=== PATIENT | male | born 1995 | race American Indian/Alaskan Native ===

== ENCOUNTER 2017-08-07 00:02 | Emergency (ER) | payer OTHER ==
[2017-08-07 00:13] VITALS: BP 139/70; PULSE 64; RESP 17; TEMP 98.6; O2SAT 98
[2017-08-07] MEDS ORDERED: Sodium Chloride 0.9% 1,000 ML IV STA (00:33)
--- NOTE | 2017-08-07 00:37 | ED PDOC ---
HPI: General Adult Time Seen by Provider: 08/07/17 00:11 Chief Complaint (Nursing): Headache Chief Complaint (Provider): weakness History Per: Patient History/Exam Limitations: no limitations Onset/Duration Of Symptoms: Days (1) Current Symptoms Are (Timing): Still Present Additional History Per: Patient Additional Complaint(s): 21 y/o male history of seizures (diagnosed in ED, never followed up with neuro or started on meds) presents with generalized weakness x 1 day. Patient states "I feel dehydrated". Notes mild cough. Denies fever, headache, dizziness, extremity numbness/weakness, chest pain, shortness of breath, palpitations, abdominal pain, changes in bowel movements, urinary symptoms, drug/alcohol use. Past Medical History Reviewed: Historical Data, Nursing Documentation, Vital Signs Vital Signs: Last Vital Signs Temp 98.6 F 08/07/17 00:08 Pulse 64 08/07/17 00:08 Resp 17 08/07/17 00:08 BP 139/70 08/07/17 00:08 Pulse Ox 98 08/07/17 01:18 - Medical History PMH: Asthma, Seizures - Surgical History Surgical History: No Surg Hx - Family History Family History: States: Unknown Family Hx - Social History Current smoker - smoking cessation education provided: Yes - Immunization History Hx Tetanus Toxoid Vaccination: No Hx Influenza Vaccination: No Hx Pneumococcal Vaccination: No - Home Medications Home Medications: Ambulatory Orders Medication Instructions Recorded No Known Home Med 12/31/16 - Allergies Allergies/Adverse Reactions: Allergies Allergy/AdvReac Type Severity Reaction Status Date / Time shrimp Allergy RASH Verified 12/31/16 14:38 Review of Systems ROS Statement: Except As Marked, All Systems Reviewed And Found Negative Constitutional: Positive for: Weakness Physical Exam - Reviewed Nursing Documentation Reviewed: Yes Vital Signs Reviewed: Yes - Physical Exam Appears: Positive for: Well, Non-toxic, No Acute Distress Head Exam: Positive for: ATRAUMATIC, NORMAL INSPECTION, NORMOCEPHALIC Skin: Positive for: Normal Color Eye Exam: Positive for: Normal appearance ENT: Positive for: Normal ENT Inspection Cardiovascular/Chest: Positive for: Regular Rate, Rhythm Respiratory: Positive for: Normal Breath Sounds Gastrointestinal/Abdominal: Positive for: Normal Exam Back: Positive for: Normal Inspection Extremity: Positive for: Normal ROM Neurologic/Psych: Positive for: Alert, Oriented - Laboratory Results Result Diagrams: 08/07/17 00:40 08/07/17 00:40 - ECG ECG: Positive for: Viewed By Me (reviewed by ED attending) ECG Rhythm: Positive for: Sinus Bradycardia (57bpm) O2 Sat by Pulse Oximetry: 98 Pulse Ox Interpretation: Normal - Radiology X-Ray: Viewed By Me X-Ray Interpretation: No Acute Disease - Progress ED Course And Treament: labs, ekg, accucheck, chest xray, urine, IV fluids On re-eval, patient states he is feeling better. Patient educated on findings, discharged with instructions to follow up PMD 2-3 days. Return to ED for worsening/concerning symptoms. Disposition - Clinical Impression Clinical Impression: Generalized weakness, Polysubstance abuse - Patient ED Disposition Is Patient to be Admitted: No Counseled Patient/Family Regarding: Studies Performed, Diagnosis, Need For Followup - Disposition Referrals: [facility] [Outside] Disposition: Routine/Home Disposition Time: 02:05 Condition: IMPROVED Instructions: Weakness (ED), Polysubstance Abuse (ED)
[2017-08-07 01:13] LABS: BASO # 0.1 K/uL (0.0-0.2); BASO % 0.7 % (0.0-2.0); EOS % 0.2 % (0.0-4.0); HEMATOCRIT 42.3 % (35.0-51.0); LYMPH # 1.4 K/uL (1.0-4.3); LYMPH % 10.6 % (20.0-40.0); MEAN CELL VOLUME 97.1 fl (80.0-94.0); MEAN CORPUSCULAR HEMOGLOBIN 32.2 pg (27.0-31.0); MEAN CORPUSCULAR HGB CONC 33.2 g/dL (33.0-37.0); MEAN PLATELET VOLUME 9.7 fl (7.2-11.7); MONO % 7.3 % (0.0-10.0); NEUT # 10.8 K/uL (1.8-7.0); NEUT % 81.2 % (50.0-75.0); WHITE BLOOD COUNT 13.3 K/uL (4.8-10.8)
[2017-08-07 01:24] LABS: ALB/GLOB RATIO 1.7 (1.0-2.1); ALCOHOL SERUM < 10 mg/dl (0-10); ALKALINE PHOSPHATASE 62 U/L (38-126); ALT/SGPT 32 U/L (21-72); AST/SGOT 28 U/L (17-59); BILIRUBIN,TOTAL 0.7 mg/dl (0.2-1.3); BLOOD UREA NITROGEN 12 mg/dl (9-20); CALCIUM 9.4 mg/dL (8.4-10.2); CARBON DIOXIDE 24 mmol/L (22-30); CHLORIDE 104 mmol/L (98-107); GFR AFRICAN-AMERICAN > 60; GLUCOSE,RANDOM 101 mg/dL (75-110); POTASSIUM 3.8 MMOL/L (3.6-5.0); SODIUM 143 mmol/l (132-148); TOTAL PROTEIN 7.5 G/DL (6.3-8.2)
[2017-08-07 01:37] LABS: RBC URINE 1 /hpf (0-3); URINE BACTERIA RARE (<OCC); URINE BILIRUBIN NEGATIVE (NEGATIVE); URINE BLOOD NEGATIVE (NEGATIVE); URINE COLOR YELLOW (YELLOW); URINE GLUCOSE (UA) NEG (Normal); URINE KETONE NEGATIVE (NEGATIVE); URINE LEUKOCYTE ESTERASE NEG Leu/uL (Negative); URINE PROTEIN NEGATIVE (NEGATIVE); WBC URINE 1 /hpf (0-5)
--- NOTE | 2017-08-07 08:30 | RAD ---
HISTORY: weakness COMPARISON: No prior. TECHNIQUE: Chest PA and lateral FINDINGS: LUNGS: No active pulmonary disease. PLEURA: No significant pleural effusion identified. No pneumothorax apparent. CARDIOVASCULAR: Normal. OSSEOUS STRUCTURES: No significant abnormalities. VISUALIZED UPPER ABDOMEN: Normal. OTHER FINDINGS: None. IMPRESSION: No active disease. Concordant results with the preliminary interpretation rendered by the emergency department physician procedure.
--- NOTE | 2017-08-07 09:12 | CARD ---
APPROVED REPORT EKG Measurement Heart [id number] <Conclusion> Sinus bradycardia otherwise normal EKG
== END 2017-08-07 02:11 | disposition home or self-care (01) ==
LOC: H.ER 00:02
DX: R53.1 Weakness (principal); F19.10 Other psychoactive substance abuse, uncomplicated; J45.909 Unspecified asthma, uncomplicated
CPT/HCPCS: 71020; 80053; 80320; 80324; 80345; 80346; 80349; 80353; 80358; 80361; 81003; 83992; 85025; 93005; 96360; 99282; J7040

== ENCOUNTER 2018-09-02 21:00 | Emergency (ER) | payer SELFPAY ==
--- NOTE | 2018-09-02 21:54 | ED PDOC ---
HPI: Trauma/Fall - HPI Time Seen by Provider: 09/02/18 21:33 Chief Complaint (Nursing): Trauma Past Medical History Vital Signs: Last Vital Signs Temp 98.4 F 09/02/18 21:02 Pulse 90 09/02/18 21:02 Resp 16 09/02/18 21:02 BP 117/63 09/02/18 21:02 Pulse Ox 96 09/02/18 21:02 - Medical History PMH: Asthma, Seizures - Family History Family History: States: Unknown Family Hx - Immunization History Hx Tetanus Toxoid Vaccination: No Hx Influenza Vaccination: No Hx Pneumococcal Vaccination: No - Home Medications Home Medications: Ambulatory Orders Medication Instructions Recorded No Known Home Med 12/31/16 - Allergies Allergies/Adverse Reactions: Allergies Allergy/AdvReac Type Severity Reaction Status Date / Time iodine Allergy RASH Verified 09/02/18 21:06 shrimp Allergy RASH Verified 12/31/16 14:38 Lobster Allergy RASH Uncoded 09/02/18 21:06 - ECG O2 Sat by Pulse Oximetry: 96 Disposition - Disposition
[2018-09-03 00:59] VITALS: BP 112/81; PULSE 72; RESP 18; TEMP 97.8; O2SAT 100
--- NOTE | 2018-09-03 08:20 | RAD ---
Date of service: 09/02/2018 PROCEDURE: Right Knee Radiographs. HISTORY: hip pain COMPARISON: None. FINDINGS: BONES: No acute fracture or destructive bony lesion identified. JOINTS: Normal. No osteoarthritis. JOINT EFFUSION: None. OTHER FINDINGS: None. IMPRESSION: Unremarkable radiographs of the right knee.
--- NOTE | 2018-09-03 08:20 | RAD ---
Date of service: 09/02/2018 PROCEDURE: RIGHT HIP WITH PELVIS RADIOGRAPHS HISTORY: hip pain COMPARISON: None available. TECHNIQUE: Frontal views of the right hip and pelvis been submitted with frog-leg lateral view right hip. FINDINGS: No acute fracture dislocation of the right hip is appreciated no destructive bony lesions appreciated. Similarly, the pelvic ring appears intact without fracture or destructive lesion appreciable. No dislocation is seen the right hip joint. Left hip joint appears symmetric and unremarkable in compared to the right. Bilateral sacroiliac joints appear unremarkable swells the remainder of the sacrum and iliac bones. Pubic symphysis is intact swells remaining pubic bony anatomy. Local soft tissues appear unremarkable. IMPRESSION: No acute fracture dislocation right hip joint with the pelvic ring grossly intact as well.
--- NOTE | 2018-09-03 11:47 | ED PDOC ---
HPI: Trauma/Fall - HPI Time Seen by Provider: 09/02/18 21:33 Chief Complaint (Nursing): Trauma Chief Complaint (Provider): Back Pain History Per: Patient History/Exam Limitations: other (uncooperative) Onset/Duration Of Symptoms: Days Injury Occurred (Timing): Days Ago: (4) Additional Complaint(s): 22 year old male with PMH of asthma and seizures (diagnosed in the ER, never followed up with Neurology, does not take any medication) presents to the emergency department complaining of upper back pain x 4 days. Patient states he was at a alliance party a few days ago and part of the floor gave out causing him to fall. Since that time he has been having upper back pain and right leg pain at hip and knee. Pain is worse with movement. He is unsure if he hit his head, denies LOC. Patient has not taken any medications for pain. Patient admits to smoking marijuana today before arrival and drinking large amounts of alcohol yesterday. Denies recent seizure activity, headache, vision changes, abdominal pain, nausea, vomiting, numbness, paresthesias, weakness, low back pain, bowel or bladder incontinence, saddle anesthesia, chest pain, shortness of breath. ROS is limited due to uncooperative nature of patient. Past Medical History Reviewed: Historical Data, Nursing Documentation, Vital Signs Vital Signs: Last Vital Signs Temp 97.8 F 09/03/18 00:00 Pulse 72 09/03/18 00:00 Resp 18 09/03/18 00:00 BP 112/81 09/03/18 00:00 Pulse Ox 100 09/03/18 00:00 - Medical History PMH: Asthma, Seizures - Family History Family History: States: Unknown Family Hx - Immunization History Hx Tetanus Toxoid Vaccination: No Hx Influenza Vaccination: No Hx Pneumococcal Vaccination: No - Home Medications Home Medications: Ambulatory Orders Medication Instructions Recorded Ibuprofen [Motrin Tab] 600 mg PO Q6H PRN #30 tab 09/02/18 Lidocaine 5% [Lidoderm] 1 ea TD Q12H PRN #10 patch 09/02/18 - Allergies Allergies/Adverse Reactions: Allergies Allergy/AdvReac Type Severity Reaction Status Date / Time iodine Allergy RASH Verified 09/02/18 21:06 shrimp Allergy RASH Verified 12/31/16 14:38 Lobster Allergy RASH Uncoded 09/02/18 21:06 Review of Systems ROS Statement: Except As Marked, All Systems Reviewed And Found Negative Constitutional: Negative for: Fever, Chills Eyes: Negative for: Pain, Vision Change ENT: Negative for: Nose Discharge, Mouth Pain, Mouth Swelling, Throat Pain, Throat Swelling Cardiovascular: Negative for: Chest Pain, Palpitations, Edema, Light Headedness Respiratory: Negative for: Cough, Shortness of Breath, Hemoptysis, Pleuritic Pain, Wheezing Gastrointestinal: Negative for: Nausea, Vomiting, Abdominal Pain Musculoskeletal: Positive for: Neck Pain, Back Pain (thoracic), Leg Pain (right hip, right knee). Negative for: Shoulder Pain, Arm Pain, Hand Pain, Foot Pain Skin: Negative for: Rash, Lesions, Bruising Neurological: Negative for: Weakness, Numbness, Incoordination, Change in Speech, Confusion, Seizures, Altered Mental Status, Headache, Dizziness Psych: Negative for: Withdrawal Physical Exam - Reviewed Nursing Documentation Reviewed: Yes Vital Signs Reviewed: Yes - Physical Exam Appears: Positive for: Well, Non-toxic, No Acute Distress Head Exam: Positive for: ATRAUMATIC, NORMAL INSPECTION, NORMOCEPHALIC Skin: Positive for: Normal Color, Warm, DRY Eye Exam: Positive for: EOMI, Normal appearance, PERRL Neck: Positive for: Supple, Pain On Movement Of Neck (midline tenderness; decreased flexion) Cardiovascular/Chest: Positive for: Regular Rate, Rhythm, Chest Non Tender Respiratory: Positive for: Normal Breath Sounds. Negative for: Decreased Breath Sounds, Accessory Muscle Use, Rales, Rhonchi, Wheezing Pulses-Radial (L): 2+ Pulses-Radial (R): 2+ Gastrointestinal/Abdominal: Positive for: Normal Exam, Bowel Sounds (normoactive), Soft. Negative for: Tenderness Back: Positive for: Normal Inspection, Vertebral Tenderness (thoracic, cervical), Decreased ROM (secondary to pain; decreased flexion), Other (thoracic paraspinal muscl tenderness). Negative for: Muscle Spasm Extremity: Positive for: Normal ROM, Tenderness (right lateral hip; right anterior knee), Capillary Refill (<2s). Negative for: Deformity, Swelling Neurologic/Psych: Positive for: Alert, citrus fruit packer II-XII (intact), Oriented, Mood/A ffect (uncooperative), Cerebellar Tests (normal), Gait (steady). Negative for: Motor/Sensory Deficits, Aphasia, Facial Droop - ECG O2 Sat by Pulse Oximetry: 100 Medical Decision Making Medical Decision Making: Pt laying on floor of ED yelling expletives at nursing staff, c/o pain. Pt describing seizure history, on further questioning, determined that pt did not have a seizure today or since his accident. Pt admits to substance use (marijuana) today and large amount of alcohol consumption yesterday. Denies alcohol use today, however pt smells of alcohol here in ED. Impression: Uncooperative pt c/o upper back pain s/p injury 4 days ago. Normal neuro exam. Midline tenderness over cervical and thoracic spine. Questionable head injury. Secondary to midline tenderness and mechanism of injury, will CT spine and head to r/o fracture at tender areas. Will XR right hip and knee to r/o fracture. Initial Plan: --pain control --CT head, cervical spine, thoracic spine --XR right hip, right knee Pt reports decreased pain after medications Pt resting comfortably in stretcher speaking with friend who accompanied him while waiting for diagnostic results. Hip XR: no acute fracture or dislocation, read by radiologist Knee XR: no acute fracture or dislocation, read by radiologist Pt now c/o bilateral rib pain. Offered to XR ribs to r/o fracture but pt refuses. Normal breath sounds bilaterally. CTs read by [facility] Head CT: No intracranial hemorrhage, no acute findings Cervical Spine: No acute fracture; normal alignment Thoracic Spine: No acute fracture; normal alignment Discussed diagnostic testing results with pt. Pt requesting to leave ED. Plan of care and appropriate followup discussed with pt. Provided with details on clinic, as he has no PMD. Gave pt neurology followup for his seizure history. Walking with steady gait. Pt stable for discharge home. Impression: Muscle Strain; Evaluation for fall Plan: --ibuprofen/lidoderm patches for pain --orthopedic followup within 2 days --neurology followup within 2 days for assessment of seizure history --clinic followup within 2 days --Return to ER for new or worsening symptoms Disposition - Clinical Impression Clinical Impression: Muscle strain, Fall - Patient ED Disposition Is Patient to be Admitted: No Counseled Patient/Family Regarding: Studies Performed, Diagnosis, Need For Followup, Rx Given, Smoking Cessation - Disposition Referrals: [facility] [Outside] Michela Pearson MD [Medical Doctor] - Disposition: Routine/Home Disposition Time: 23:30 Condition: IMPROVED Additional Instructions: Ibuprofen/Tylenol for pain Followup with primary doctor within 2 days Followup with neurology within 2 days Return to ER if symptoms worsen or new symptoms develop Prescriptions: Ibuprofen [Motrin Tab] 600 mg PO Q6H PRN #30 tab PRN Reason: Pain, Moderate (4-7) Lidocaine 5% [Lidoderm] 1 ea TD Q12H PRN #10 patch PRN Reason: Pain, Mild (1-3) Instructions: Muscle Strain Forms: [facility] ([place])
--- NOTE | 2018-09-03 13:44 | CT ---
Date of service: 09/02/2018 PROCEDURE: CT HEAD WITHOUT CONTRAST. HISTORY: headache COMPARISON: None available. TECHNIQUE: Axial computed tomography images were obtained through the head/brain without intravenous contrast. Radiation dose: Total exam DLP = 760.73 mGy-cm. This CT exam was performed using one or more of the following dose reduction techniques: Automated exposure control, adjustment of the mA and/or kV according to patient size, and/or use of iterative reconstruction technique. FINDINGS: HEMORRHAGE: No intracranial hemorrhage. BRAIN: Normal eid-white matter differentiation and density are appreciated throughout the cerebrum and cerebellum with the brainstem appearing unremarkable as well. There is no mass effect. There is no suspicious extra-axial fluid collection and the midline brain anatomy appears diffusely unremarkable. VENTRICLES: Unremarkable. No hydrocephalus. CALVARIUM: No destructive bony lesion or displaced fracture identified including through the skullbase. PARANASAL SINUSES: Unremarkable as visualized. No significant inflammatory changes. MASTOID AIR CELLS: Unremarkable as visualized. No inflammatory changes. OTHER FINDINGS: None. IMPRESSION: Unremarkable noncontrast CT of the Head. Concordant preliminary report from [facility], 09/02/2018.
--- NOTE | 2018-09-03 14:47 | CT ---
Date of service: 09/02/2018 PROCEDURE: CT Cervical Spine without contrast HISTORY: Back and neck Pain. No history of recent/ related trauma provided COMPARISON: None available. TECHNIQUE: Axial computed tomography images were obtained of the cervical spine without the use of intravenous contrast. Coronal and sagittal reformatted images were created and reviewed. Radiation dose: Total exam DLP = 294.77 mGy-cm. This CT exam was performed using one or more of the following dose reduction techniques: Automated exposure control, adjustment of the mA and/or kV according to patient size, and/or use of iterative reconstruction technique. FINDINGS: VERTEBRAE: No fracture. Normal alignment. No destructive bony lesion. DISCS/SPINAL CANAL/NEURAL FORAMINA: No significant central canal or neural foraminal stenosis. Discs heights are grossly preserved. PARASPINAL SOFT TISSUES: Unremarkable. OTHER FINDINGS: None. IMPRESSION: Unremarkable CT of the cervical spine. Concordant results (preliminary interpretation) provided by [facility]. Procedure Completed: 22:28 Preliminary Report: Dictated and Authenticated: 22:57 Final Interpretation: 14:43. September 03, 2018
--- NOTE | 2018-09-03 14:48 | CT ---
Date of service: 09/02/2018 PROCEDURE: CT Thoracic Spine without contrast HISTORY: Back Pain. No history of recent/ related trauma provided COMPARISON: None available. TECHNIQUE: Axial computed tomography images were obtained of the thoracic spine without intravenous contrast. Coronal and sagittal reformatted images were created and reviewed. Radiation dose: Total exam DLP = 361.49 mGy-cm. This CT exam was performed using one or more of the following dose reduction techniques: Automated exposure control, adjustment of the mA and/or kV according to patient size, and/or use of iterative reconstruction technique. FINDINGS: VERTEBRAE: Unremarkable. No fracture. Normal alignment. DISCS/SPINAL CANAL/NEURAL FORAMINA: Within the limits of the CT technique, no disc herniation seen. No central canal or neural foraminal stenosis.. PARASPINAL SOFT TISSUES: Unremarkable. OTHER FINDINGS: Unremarkable. IMPRESSION: Unremarkable CT of the thoracic spine. Concordant results (preliminary interpretation) provided by [facility]. Procedure Completed: 22:28. Preliminary Report: Dictated and Authenticated: 23:13. Final Interpretation: 14:44. September 03, 2018
== END 2018-09-03 00:15 | disposition home or self-care (01) ==
LOC: H.ER 21:00
DX: S39.012A Strain of muscle, fascia and tendon of lower back, initial encounter (principal); M25.561 Pain in right knee; M25.551 Pain in right hip; W19.XXXA Unspecified fall, initial encounter; Y92.89 Other specified places as the place of occurrence of the external cause; R56.9 Unspecified convulsions; F12.90 Cannabis use, unspecified, uncomplicated
CPT/HCPCS: 70450; 72125; 72128; 73502; 73562; 96372; 99284; J1885

== ENCOUNTER 2018-09-07 02:36 | Emergency (ER) | payer SELFPAY ==
[2018-09-07 02:43] VITALS: BMI 24.7
[2018-09-07 02:45] VITALS: BP 117/68; PULSE 83; RESP 18; TEMP 99; O2SAT 97
--- NOTE | 2018-09-07 03:27 | ED PDOC ---
HPI: Chest Pain Time Seen by Provider: 09/07/18 02:48 Chief Complaint (Nursing): Rib Injury Chief Complaint (Provider): Rib Injury History Per: Patient History/Exam Limitations: no limitations Onset/Duration Of Symptoms: Days (x2 weeks) Additional Complaint(s): Patient is a 22 y/o male with history of asthma and seizures, who presents to the ED complaining of right sided rib pain for the past x2 weeks. Patient reports that he had fallen and injured himself 2 weeks ago. Patient was intoxicated and under arrest at that time. He was seen here with extensive imaging and was discharged with prescription for ibuprofen and topical pain patch. After release from incarceration x3 days ago he did not fill his prescription and is now complaining of right side rib pain. Patient is stating that he had no x-ray done at time of original presentation. Past Medical History Reviewed: Historical Data, Nursing Documentation, Vital Signs Vital Signs: Last Vital Signs Temp 99.0 F 09/07/18 02:43 Pulse 83 09/07/18 02:43 Resp 18 09/07/18 02:43 BP 117/68 09/07/18 02:43 Pulse Ox 97 09/07/18 02:43 - Medical History PMH: Asthma, Seizures - Family History Family History: States: Unknown Family Hx - Immunization History Hx Tetanus Toxoid Vaccination: No Hx Influenza Vaccination: No Hx Pneumococcal Vaccination: No - Home Medications Home Medications: Ambulatory Orders Medication Instructions Recorded Lidocaine 5% [Lidoderm] 1 ea TD Q12H PRN #10 patch 09/02/18 RX: Ibuprofen [Motrin Tab] 600 mg PO Q6H PRN #30 tab 09/02/18 Lidocaine 5% [Lidoderm] 1 patch TOP Q12 PRN #10 patch 09/07/18 RX: Ibuprofen [Motrin Tab] 600 mg PO Q6 PRN #16 tab 09/07/18 - Allergies Allergies/Adverse Reactions: Allergies Allergy/AdvReac Type Severity Reaction Status Date / Time iodine Allergy RASH Verified 09/07/18 02:42 shrimp Allergy RASH Verified 09/07/18 02:42 Lobster Allergy RASH Uncoded 09/07/18 02:42 Review of Systems ROS Statement: Except As Marked, All Systems Reviewed And Found Negative Cardiovascular: Positive for: Chest Pain (right side rib pain) Physical Exam - Reviewed Nursing Documentation Reviewed: Yes Vital Signs Reviewed: Yes - Physical Exam Appears: Positive for: Non-toxic, No Acute Distress Head Exam: Positive for: ATRAUMATIC, NORMOCEPHALIC Skin: Positive for: Normal Color, Warm, Dry Eye Exam: Positive for: EOMI, Normal appearance, PERRL Neck: Positive for: Normal, Painless ROM Cardiovascular/Chest: Positive for: Regular Rate, Rhythm. Negative for: Chest Non Tender (mild tenderness over right anterior chest wall), Other (deformity) Respiratory: Positive for: Normal Breath Sounds. Negative for: Respiratory Distress Gastrointestinal/Abdominal: Positive for: Normal Exam, Soft. Negative for: Tenderness Extremity: Positive for: Normal ROM. Negative for: Pedal Edema, Deformity Neurologic/Psych: Positive for: Alert, Oriented. Negative for: Motor/Sensory Deficits - ECG O2 Sat by Pulse Oximetry: 97 (RA) Pulse Ox Interpretation: Normal Medical Decision Making Medical Decision Making: Time: 03:19 Impression: 22 y/o male with right sided rib injury Initial plan: Flexeril 10 mg Toradol 60 mg RAD - Ribs right Time: 03:25 When patient was being taken to have x-ray image performed patient became rude to bone density technician and staff and stormed out of the ED. Patient left before treatment. Scribe Attestation: Documented by Rahul Blackburn, acting as a scribe for Vikas Keller MD. Provider Scribe Attestation: All medical record entries made by the Scribe were at my direction and personally dictated by me. I have reviewed the chart and agree that the record accurately reflects my personal performance of the history, physical exam, medical decision making, and the department course for this patient. I have also personally directed, reviewed, and agree with the discharge instructions and disposition. Disposition - Clinical Impression Clinical Impression: Contusion of rib on right side - Disposition Referrals: [facility] [Outside] Disposition: Left W/O Treatment Disposition Time: 03:30 Condition: STABLE Prescriptions: RX: Ibuprofen [Motrin Tab] 600 mg PO Q6 PRN #16 tab PRN Reason: rib pain Lidocaine 5% [Lidoderm] 1 patch TOP Q12 PRN #10 patch PRN Reason: rib pain Instructions: Bruised Rib Forms: [facility] ([place])
== END 2018-09-07 03:25 | disposition left against medical advice (07) ==
LOC: H.ER 02:36
DX: S20.211A Contusion of right front wall of thorax, initial encounter (principal); J45.909 Unspecified asthma, uncomplicated; R56.9 Unspecified convulsions

== ENCOUNTER 2018-12-04 02:09 | Emergency (ER) | payer SELFPAY ==
[2018-12-04 02:10] VITALS: BMI 24.7
--- NOTE | 2018-12-04 02:33 | ED PDOC ---
HPI: General Adult Time Seen by Provider: 12/04/18 02:20 Chief Complaint (Nursing): Medical Clearance Chief Complaint (Provider): clearance for incarceration Additional Complaint(s): 23 y/o male here in police custody for medical and psychiatric clearance for incarceration. Patient denies acute complaints. Past Medical History Reviewed: Historical Data, Nursing Documentation, Vital Signs - Medical History PMH: Asthma, Seizures - Family History Family History: States: Unknown Family Hx - Immunization History Hx Tetanus Toxoid Vaccination: No Hx Influenza Vaccination: No Hx Pneumococcal Vaccination: No - Home Medications Home Medications: Ambulatory Orders Medication Instructions Recorded Ibuprofen [Motrin Tab] 600 mg PO Q6H PRN #30 tab 09/02/18 Lidocaine 5% [Lidoderm] 1 ea TD Q12H PRN #10 patch 09/02/18 Ibuprofen [Motrin Tab] 600 mg PO Q6 PRN #16 tab 09/07/18 Lidocaine 5% [Lidoderm] 1 patch TOP Q12 PRN #10 patch 09/07/18 - Allergies Allergies/Adverse Reactions: Allergies Allergy/AdvReac Type Severity Reaction Status Date / Time iodine Allergy RASH Verified 12/04/18 02:14 shrimp Allergy RASH Verified 12/04/18 02:14 Lobster Allergy RASH Uncoded 12/04/18 02:14 Review of Systems ROS Statement: Except As Marked, All Systems Reviewed And Found Negative Physical Exam - Reviewed Nursing Documentation Reviewed: Yes Vital Signs Reviewed: Yes - Physical Exam Appears: Positive for: Well, Non-toxic, No Acute Distress Head Exam: Positive for: ATRAUMATIC, NORMAL INSPECTION, NORMOCEPHALIC Skin: Positive for: Normal Color Eye Exam: Positive for: Normal appearance Cardiovascular/Chest: Positive for: Regular Rate, Rhythm Respiratory: Positive for: Normal Breath Sounds Extremity: Positive for: Normal ROM Neurologic/Psych: Positive for: Alert, Oriented (x3) - Progress ED Course And Treament: Patient evaluated by overhead line worker and cleared for discharge as per Dr. Jimenez Disposition - Clinical Impression Clinical Impression: Adjustment disorder, Medical clearance for incarceration - Patient ED Disposition Is Patient to be Admitted: No Counseled Patient/Family Regarding: Diagnosis, Need For Followup - Disposition Disposition: Discharged/Transfer to Law Enforcement Disposition Time: 03:52 Condition: IMPROVED Additional Instructions: Patient medically and psychiatrically cleared for incarceration Instructions: Adjustment Disorder
[2018-12-04 04:10] VITALS: BP 114/64; PULSE 72; RESP 16; TEMP 98.3; O2SAT 98
== END 2018-12-04 04:10 ==
LOC: H.ER 02:09
DX: F43.20 Adjustment disorder, unspecified (principal); Z00.8 Encounter for other general examination; Z00.00 Encounter for general adult medical examination without abnormal findings